=== PATIENT | female | born 1945 | race Asian ===

== ENCOUNTER 2016-07-11 17:59 | Emergency (ER) | payer OTHER ==
[2016-07-11 18:05] VITALS: BP 155/76; PULSE 77; TEMP 97.8; BMI 26.0
--- NOTE | 2016-07-11 18:36 | PDOC ---
History of Present Illness - General Chief Complaint: Rectal Bleed Stated Complaint: HEMORRHOIDS/RECTAL BLEEDING Time Seen by Provider: 07/11/16 18:29 History Source: Patient - History of Present Illness Timing/Duration: reports: other Past History - Past Medical History Allergies/Adverse Reactions: Allergies Allergy/AdvReac Type Severity Reaction Status Date / Time No Known Allergies Allergy Verified 07/11/16 18:01 Home Medications: Ambulatory Orders Olmesartan Medoxomil [Benicar (Nf)] 40 mg PO HS 07/15/11 Atorvastatin Ca [Lipitor] 20 mg PO HS 07/11/16 Anemia: No Asthma: No Cancer: No Cardiac Disorders: No CVA: No COPD: No CHF: No Dementia: No Diabetes: No GI Disorders: No Disorders: No HTN: Yes (05/2011) Hypercholesterolemia: Yes (05/2011) Liver Disease: No Seizures: No Thyroid Disease: No Other medical history: hemorrhoids - Surgical History Abdominal Surgery: No Appendectomy: No Cardiac Surgery: No Cholecystectomy: No Lung Surgery: No Neurologic Surgery: No Orthopedic Surgery: Yes (LEFT SHOULDER ARTHROSCOPY 12/2010) - Psycho/Social/Smoking Cessation Hx Anxiety: No Suicidal Ideation: No Smoking History: Never smoked Have you smoked in the past 12 months: No Information on smoking cessation initiated: No Hx Alcohol Use: No Drug/Substance Use Hx: No Substance Use Type: None Hx Substance Use Treatment: No Review of Systems - Review of Systems Constitutional: No: Chills, Fever ABD/GI: Yes: Rectal Bleeding. No: Constipated, Diarrhea, Nausea, Vomiting, Abdominal cramping *Physical Exam - Vital Signs Last Vital Signs Temp Pulse Resp BP Pulse Ox 97.8 F 77 18 155/76 100 07/11/16 18:01 07/11/16 18:01 07/11/16 18:01 07/11/16 18:01 07/11/16 18:09 - Physical Exam General Appearance: Yes: Appropriately Dressed. No: Apparent Distress HEENT: positive: Normal Voice Neck: positive: Supple Respiratory/Chest: negative: Respiratory Distress Gastrointestinal/Abdominal: positive: Soft. negative: Tender Rectal Exam: positive: hemorrhoids (1 small non thrombosed external hemorrhoid) Integumentary: positive: Dry, Warm Neurologic: positive: Fully Oriented, Alert, Normal Mood/Affect Medical Decision Making - Medical Decision Making 07/11/16 18:34 70-year-old female history of hypertension, hemorrhoids, on Metamucil, here with rectal pain, swelling and minimal bright red blood per rectum 1 week. Has been sitting in warm water in bathtub at home with improvement in symptoms. States she called herPMD who sent her to the ED for Dr. Otto of surgery to evaluate. Patient well-appearing and stable in ED with 1 small non-thrombosed external hemorrhoid on exam. No complications at this time. Doubt surgery intervention needed. Will consult with Dr. Otto to discuss disposition *DC/Admit/Observation/Transfer Diagnosis at time of Disposition: External hemorrhoid - Discharge Dispostion Disposition: HOME Condition at time of disposition: Improved - Referrals Referrals: Juno Spencer MD [Primary Care Provider] - Nathalie Otto MD [Staff Physician] - - Patient Instructions Printed Discharge Instructions: DI for Hemorrhoids Additional Instructions: As per DR. Fabien Otto/surgery Sitz bath Motrin for pain Stool softner Follow up with Dr. Otto in 2 weeks July 21, 2016 Return back to the ER for severe/persistent/worsening pain, nausea/vomiting
--- NOTE | 2016-07-11 18:38 | PDOC ---
[id number]/76 100 07/11/16 18:01 07/11/16 18:01 07/11/16 18:01 07/11/16 18:01 07/11/16 18:09 Medical Decision Making - Medical Decision Making 07/11/16 18:37 Pt seen by the Advanced Practice Provider under my direct supervision Ancillary studies reviewed I agree with plan as outlined by the Advanced Practice Provider ANTHONY Parekh *DC/Admit/Observation/Transfer Diagnosis at time of Disposition: External hemorrhoid - Discharge Dispostion Disposition: HOME Condition at time of disposition: Improved - Referrals Referrals: Juno Spencer MD [Primary Care Provider] - Nathalie Otto MD [Staff Physician] - - Patient Instructions Printed Discharge Instructions: DI for Hemorrhoids Additional Instructions: As per DR. Fabien Otto/surgery Sitz bath Motrin for pain Stool softner Follow up with Dr. Otto in 2 weeks July 21, 2016 Return back to the ER for severe/persistent/worsening pain, nausea/vomiting
--- NOTE | 2016-07-11 18:57 | PDOC ---
*Physical Exam - Vital Signs Last Vital Signs Temp Pulse Resp BP Pulse Ox 97.8 F 77 18 155/76 100 07/11/16 18:01 07/11/16 18:01 07/11/16 18:01 07/11/16 18:01 07/11/16 18:09 Progress Note - Progress Note Progress Note: 1852 hours: Dr. Otto/surgery present to examine pt/room 7. As per Dr. Otto, d/c Sitz bath Motrin for pain F/u in 2 weeks *DC/Admit/Observation/Transfer Diagnosis at time of Disposition: External hemorrhoids - Discharge Dispostion Disposition: HOME Condition at time of disposition: Improved - Referrals Referrals: Juno Spencer MD [Primary Care Provider] - Nathalie Otto MD [Staff Physician] - - Patient Instructions Printed Discharge Instructions: DI for Hemorrhoids Additional Instructions: As per DR. Fabien Otto/surgery Sitz bath Motrin for pain Stool softner Follow up with Dr. Otto in 2 weeks July 21, 2016 Return back to the ER for severe/persistent/worsening pain, nausea/vomiting
--- NOTE | 2016-07-11 19:07 | CONSULT ---
Consult Consult Specialty:: Surgery Referred by:: Dr. phong Cuadra Reason for Consultation:: Thrombosed hemorrhoids. - History of Present Illness Chief Complaint: c/O Rectal pain for 2 weeks, with some rectal bleeding. H/O chronic constipation,. Uses stool softeners regularly. - History Source History Provided By: Patient Limitations to Obtaining History: No Limitations - Past Medical History Cardio/Vascular: Yes: HTN - Past Surgical History Past Surgical History: Yes: None - Alcohol/Substance Use Hx Alcohol Use: No - Smoking History Smoking history: Never smoked Have you smoked in the past 12 months: No Home Medications - Allergies Allergies/Adverse Reactions: Allergies Allergy/AdvReac Type Severity Reaction Status Date / Time No Known Allergies Allergy Verified 07/11/16 18:01 - Home Medications Home Medications: Ambulatory Orders Olmesartan Medoxomil [Benicar (Nf)] 40 mg PO HS 07/15/11 Atorvastatin Ca [Lipitor] 20 mg PO HS 07/11/16 Physical Exam Vital Signs: Vital Signs Temperature 97.8 F 07/11/16 18:01 Pulse Rate 77 07/11/16 18:01 Respiratory Rate 18 07/11/16 18:01 Blood Pressure 155/76 07/11/16 18:01 O2 Sat by Pulse Oximetry (%) 100 07/11/16 18:09 ...Rectal Exam: Yes: Hemorrhoids/External, Hemorrhoids/Internal (Rectal examination: Grade 3-4 hemorrhoids. There is a small area of firm , thrombosed hemorrhoid at 5 oclock position. No blood on finger.) Problem List - Problems (1) Hemorrhoids with complication Code(s): K64.8 - OTHER HEMORRHOIDS (2) Hypertension Code(s): I10 - ESSENTIAL (PRIMARY) HYPERTENSION Qualifiers: Hypertension type: essential hypertension Qualified Code(s): I10 - Essential (primary) hypertension Assessment/Plan Grade 3-4 hemorrhoid, with a small area of thrombosis. Pain management, sitz bath , stool softeners. Will do elective ligation of hemorrhoid, once acute episode is over. Lidocaine for local application.
[2016-07-11] MEDS ORDERED: LIDOCAINE HCL 2% JELLY (5 ML/TUBE) ONE (19:08)
== END 2016-07-11 19:16 | disposition home or self-care (01) ==
LOC: JER 17:59
DX: K64.2 Third degree hemorrhoids (principal); K64.8 Other hemorrhoids; K59.09 Other constipation; I10 Essential (primary) hypertension
CPT/HCPCS: 99283-25

== ENCOUNTER 2017-01-07 07:08 | Day surgery (SDC) | payer OTHER ==
[2016-12-31 10:54] VITALS: BMI 25.4
[2017-01-07] MEDS ORDERED: PROPOFOL 20 ML ONE ×2 (07:58→08:02)
[2017-01-07] MEDS ORDERED: MIDAZOLAM HCL 2 MG/2 ML SINGLE DOSE VIAL ONE (07:59)
[2017-01-07] MEDS ORDERED: LIDOCAINE HCL 2% (50ML VIAL) INF ONE (08:34)
[2017-01-07] MEDS ORDERED: GUM MASTIC/STORAX/MSAL/ALCOHOL 1 DRP DROPSBTL MC ONE (08:43)
[2017-01-07] MEDS ORDERED: oxyCODONE HCL 5 MG TABLET PO PRN ×2 (08:57)
[2017-01-07] MEDS ORDERED: LACTATED RINGERS SOLUTION 1,000 ML IV SCH (09:00)
[2017-01-07 09:14] VITALS: BP 127/77; TEMP 98
[2017-01-07] MEDS ORDERED: ACETAMINOPHEN 325 MG TABLET (FP) PO PRN (09:28)
[2017-01-07] MEDS ORDERED: ONDANSETRON 4 MG/2 ML VIAL IVPUSH PRN (09:28)
[2017-01-07 10:18] VITALS: PULSE 72
--- NOTE | 2017-01-08 09:41 | OP ---
DATE OF OPERATION: 01/07/2017 PREOPERATIVE DIAGNOSES: 1. Right de Quervain tenosynovitis. 2. Right carpal tunnel syndrome. POSTOPERATIVE DIAGNOSES: 1. Right de Quervain tenosynovitis. 2. Right carpal tunnel syndrome. OPERATIVE PROCEDURES: 1. Right de Quervain release of the first dorsal compartment. 2. Right carpal tunnel release. SURGEON: Casimiro Lucio MD ANESTHESIA: Local with sedation. COMPLICATIONS: None. ESTIMATED BLOOD LOSS: Minimal. INDICATIONS FOR PROCEDURE: The patient is a 71-year-old female with the above finding indicated for operative treatment. Risks, benefits, and alternatives were discussed with the patient at length, and proper informed consent was obtained. PROCEDURE: After proper identification of the patient and correct operative site, the patient was brought to the operating room and placed supine on the operating room table. All prominences were well padded. Sedation was given by the anesthesiologist. Local anesthesia was given with 2% lidocaine. Right upper extremity was prepped and draped in the usual sterile fashion. A well-padded tourniquet was placed with a sterile prep. Esmarch bandage used to exsanguinate the right upper extremity. Tourniquet was inflated to 250 mmHg. A longitudinal incision was made over the proximal aspect of the palm. The incision was taken sharply through skin with blunt and sharp dissection through the subcutaneous tissues. Palmar fascia was divided longitudinally. Transverse carpal ligament was divided longitudinally along with the distal 4 cm of antebrachial fascia under direct visualization with loop magnification. This provided complete release of the median nerve at the wrist. The wound was repaired with 5-0 nylon suture and sterile dressings were applied. A second incision was made transversely over the first dorsal compartment. Incision was taken sharply through skin with blunt and sharp dissection of subcutaneous tissues. The first dorsal compartment was identified and neurovascular structures were carefully protected. The first dorsal compartment was found to be thickened and swollen. It was divided along its dorsal border. This provided complete release of the first dorsal compartment as there were no subcompartments. The wrist was taken through a range of motion and no subluxation of the tendons was visualized. The wound was irrigated with saline and repaired with a 4-0 Monocryl suture and Steri-Strips. Sterile dressings were applied. The patient was reversed from anesthesia and brought to the recovery room in stable condition. She tolerated the procedure well. CASIMIRO LUCIO M.D. [id number]
== END 2017-01-07 10:05 | disposition home or self-care (01) ==
LOC: FASU 07:08
PROVIDERS: ATTEND Orthopaedic Surgery Hand Surgery
PROC: 01N50ZZ Release Median Nerve, Open Approach (ICD-10-PCS; principal; 2017-01-07 08:35)
PROC: 0L850ZZ Division of Right Lower Arm and Wrist Tendon, Open Approach (ICD-10-PCS; 2017-01-07 08:35)
DX: G56.01 Carpal tunnel syndrome, right upper limb (principal); M65.4 Radial styloid tenosynovitis [de Quervain]

== ENCOUNTER 2018-01-01 08:37 | Day surgery (SDC) | payer OTHER ==
[2018-01-01 09:15] VITALS: BMI 27.1
[2018-01-01 10:54] VITALS: TEMP 97.6
[2018-01-01 12:04] VITALS: BP 111/57; PULSE 56
--- NOTE | 2018-01-04 18:59 | PATH ---
Surgical Pathology Report Patient Name: JUANA GARCIA [facility]. Rec. #: [id number] /Age/Gender: 1945 (Age: 72) / F Account: [id number] Location: ASU-ENDOSCOPY Taken: 01/01/2018 Received: 01/01/2018 Reported: 01/04/2018 Physicians: Asya Calzada M.D. Specimen(s) Received A: BX ASYMMETRICAL ILEOCECAL VALVE B: RECTAL POLYP Clinical History Rectal bleeding, screening Postoperative diagnosis: Diverticulosis, colon polyp Final Diagnosis A. ASYMMETRICAL ILEOCECAL VALVE, BIOPSY: SMALL INTESTINAL MUCOSA AND SEPARATE ONE FRAGMENT OF COLONIC MUCOSA WITH NO DIAGNOSTIC ABNORMALITIES. B. RECTAL POLYP, POLYPECTOMY: HYPERPLASTIC POLYP. Electronically Signed Lamine Ramirez M.D. Gross Description A. Received in formalin, labeled "biopsy ileocecal valve" are roger, irregular portions of soft tissue measuring 0.2 and 0.4 cm. in greatest dimension. The specimens are submitted in toto in one cassette. B. Received in formalin, labeled "biopsy rectal polyp" is a roger, irregular portion of soft tissue measuring 0.4 cm. in greatest dimension. The specimen is submitted in toto in one cassette. 01/01/2018 saudi01/01/2018
== END 2018-01-01 12:04 | disposition home or self-care (01) ==
LOC: JASU-ENDO 08:37
PROVIDERS: ATTEND Internal Medicine Gastroenterology
PROC: 0DBP8ZX Excision of Rectum, Via Natural or Artificial Opening Endoscopic, Diagnostic (ICD-10-PCS; 2018-01-01)
PROC: 0DBC8ZX Excision of Ileocecal Valve, Via Natural or Artificial Opening Endoscopic, Diagnostic (ICD-10-PCS; principal; 2018-01-01 10:00)
DX: Z12.11 Encounter for screening for malignant neoplasm of colon (principal); K62.1 Rectal polyp; K64.8 Other hemorrhoids; K57.30 Diverticulosis of large intestine without perforation or abscess without bleeding; K63.5 Polyp of colon
CPT/HCPCS: 88305-TC